=== PATIENT | female | born 2000 | race African-American/Black ===

== ENCOUNTER 2023-07-20 14:29 | Emergency (ER) | payer OTHER ==
[~2023-07-20] VITALS: Ht 175.3 cm; Wt 99.8 kg
[2023-07-20 14:51] VITALS: O2SAT 99
[2023-07-20] MEDS: KETOROLAC 30MG/ML VIAL IM ONE (17:27)
[2023-07-20] MEDS ORDERED: ACET-2708 MT (17:39)
[2023-07-20 18:05] VITALS: BP 128/75; PULSE 85; RESP 16; TEMP 98.1
== END 2023-07-20 18:06 | disposition home or self-care (01) ==
LOC: ER 15:00
DX: R51.9 Headache, unspecified (principal); S16.1XXA Strain of muscle, fascia and tendon at neck level, initial encounter; V49.9XXA Car occupant (driver) (passenger) injured in unspecified traffic accident, initial encounter; Y93.89 Activity, other specified; Y92.89 Other specified places as the place of occurrence of the external cause; Y99.8 Other external cause status
CPT/HCPCS: 96372; 99283; J1885; Z7610

== ENCOUNTER 2025-01-26 14:09 | Emergency (ER) | payer MEDICAID ==
[~2025-01-26] VITALS: Ht 175.3 cm; Wt 100.0 kg
[~2025-01-26 14:09] MED LIST: ACET-2708 MT
[2025-01-26 14:13] VITALS: O2SAT 99
[2025-01-26 14:21] VITALS: BP 124/75; PULSE 98; RESP 18; TEMP 36.7; O2SAT 99
== END 2025-01-26 16:56 | disposition left against medical advice (07) ==
LOC: ER 14:09
DX: R30.0 Dysuria (principal)
CPT/HCPCS: 99281